=== PATIENT | male | born 1980 | race Caucasian/White ===

== ENCOUNTER 2017-10-23 17:56 | Inpatient (IN) | payer MEDICAID ==
[2017-10-23 18:45] LABS: ADD MAN DIFF? NO
[2017-10-23 18:48] LABS: WHITE BLOOD COUNT 10.7 10^3/ul (4.8-10.8)
[2017-10-23 18:48] LABS: BASOPHILS % 0.4 % (0.0-2.0); EOSINOPHILS % 0.4 % (0.0-7.0); HEMATOCRIT 44.8 % (42.0-52.0); HEMOGLOBIN 16.1 g/dl (14.0-18.0); LYMPHOCYTES # 1.2 10^3/ul (0.8-2.9); LYMPHOCYTES % 11.4 % (15.0-51.0); MEAN CORPUSCULAR HEMOGLOBIN 29.6 pg (29.0-33.0); MEAN CORPUSCULAR HGB CONC 35.9 g/dl (32.0-37.0); MEAN CORPUSCULAR VOLUME 82.4 fl (82.0-101.0); MEAN PLATELET VOLUME 11.3 fl (7.4-10.4); MONOCYTES % 9.2 % (0.0-11.0); NEUTROPHIL # 8.4 10^3/ul (1.6-7.5); NEUTROPHILS % 78.3 % (39.0-77.0); PLATELET COUNT 245 10^3/UL (140-415); RED BLOOD COUNT 5.44 10^6/ul (4.70-6.10); RED CELL DISTRIBUTION WIDTH 12.3 % (11.5-14.5)
[2017-10-23 18:57] LABS: ADD UMIC NO; UR ASCORBIC ACID NEGATIVE (NEGATIVE); UR BILIRUBIN (Dip) NEGATIVE (NEGATIVE); UR BLOOD (Dip) NEGATIVE (NEGATIVE); UR CLARITY CLEAR (CLEAR); UR COLOR YELLOW (YELLOW); UR GLUCOSE (Dip) NEGATIVE (NEGATIVE); UR KETONES (Dip) NEGATIVE (NEGATIVE); UR LEUKOCYTE ESTERASE (Dip) NEGATIVE Leu/ul (NEGATIVE); UR NITRITE (Dip) NEGATIVE (NEGATIVE); UR SPECIFIC GRAVITY (Dip) 1.013 (1.003-1.030); UR TOTAL PROTEIN (Dip) NEGATIVE (NEGATIVE); UR UROBILINOGEN (Dip) NEGATIVE (NEGATIVE)
[2017-10-23 19:05] LABS: ACETAMINOPHEN < 10.0 ug/ml (10.0-30.0); ALANINE AMINOTRANSFERASE 37 IU/L (13-69); ALBUMIN 4.5 g/dl (3.3-4.9); ALBUMIN/GLOBULIN RATIO 1.45; ALKALINE PHOSPHATASE 54 IU/L (42-121); ANION GAP 21 (8-16); ASPARTATE AMINO TRANSFERASE 22 IU/L (15-46); BILIRUBIN,INDIRECT 0.4 mg/dl (0-1.1); BILIRUBIN,TOTAL 0.4 mg/dl (0.2-1.3); BLOOD UREA NITROGEN 35 mg/dl (7-20); CALCIUM 9.1 mg/dl (8.4-10.2); CARBON DIOXIDE 21 mmol/L (21-31); CHLORIDE 103 mmol/L (97-110); CREATININE 2.66 mg/dl (0.61-1.24); GLUCOSE 112 mg/dl (70-220); POTASSIUM 3.5 mmol/L (3.5-5.1); SALICYLATE < 1.0 mg/dl (5.0-30.0); SODIUM 141 mmol/L (135-144); TOTAL PROTEIN 7.6 g/dl (6.1-8.1)
[2017-10-23 19:06] LABS: ETHANOL < 10.0 mg/dl
[2017-10-23 19:09] LABS: OSMOLALITY 290 mOsm/kg (280-295)
[2017-10-23 19:14] LABS: AMPHETAMINE/METHAMPHETAMINE Positive (NEGATIVE); BARBITURATES Negative (NEGATIVE); BENZODIAZEPINES Negative (NEGATIVE); CANNABINOIDS Positive (NEGATIVE); COCAINE Negative (NEGATIVE); OPIATES Negative (NEGATIVE)
[2017-10-23] MEDS: LIDOCAINE/MYLANTA 40 ML BTL PO (19:32)
[2017-10-23] MEDS: SOD CHLORIDE 0.9% IVPB (20:05)
[2017-10-23] MEDS: FOMEPIZOLE IVPB (20:05)
[2017-10-23] MEDS: SOD CHLORIDE 0.9% 1,000 ML IV (21:51)
[2017-10-23] MEDS ORDERED: NACL 0.9% 3 ML SYG IV (22:00)
[2017-10-23] MEDS ORDERED: GLUCOSE GEL 15 GRAM TUBE BUCCAL (22:30)
[2017-10-23] MEDS ORDERED: DEXTROSE 50% 50 ML SYRINGE IV ×2 (22:30)
[2017-10-23] MEDS ORDERED: GLUCOSE GEL 15 GRAM TUBE PO ×2 (22:30)
[2017-10-23] MEDS ORDERED: GLUCAGON 1 MG INJ IM (22:30)
[2017-10-23] MEDS ORDERED: LORAZEPAM 2 MG INJ IV (22:30)
[2017-10-23] MEDS: MULTIVITAMINS 10 ML, THIAMINE 100 MG in SOD CHLORIDE 0.9% 1,000 ML IVPB (23:00)
[2017-10-23 23:34] LABS: Allen Test ACCEPTAB; Arterial Base Excess -0.7 mmol/L (-3.0-3); Arterial Blood Gas Oxygen Sat 96.6 mmHG (95.0-98.0); Arterial COHb 0.2 % (0.0-3.0); Arterial Fraction of Oxyhgb 96.2 % (93.0-99.0); Arterial HCO3 23.6 mmol/L (22.0-26.0); Arterial MetHb 0.2 % (0.0-1.5); Arterial Total Hemglobin 16.1 g/dl (12.0-18.0); Arterial pCO2 38.1 mmhg (35-45); MODE ROOM AIR; Site Right Radial
[2017-10-24] MEDS: SOD CHLORIDE 0.9% IV ×5 (00:06→23:56)
[2017-10-24] MEDS: FOLIC ACID IV ×2 (00:06→06:19)
[2017-10-24] MEDS: LIDOCAINE 5% PATCH TD (00:10)
[2017-10-24 00:20] LABS: ALANINE AMINOTRANSFERASE 40 IU/L (13-69); ALBUMIN/GLOBULIN RATIO 1.42; ALKALINE PHOSPHATASE 56 IU/L (42-121); ANION GAP 18 (8-16); ASPARTATE AMINO TRANSFERASE 23 IU/L (15-46); BILIRUBIN,INDIRECT 0.2 mg/dl (0-1.1); BILIRUBIN,TOTAL 0.2 mg/dl (0.2-1.3); BLOOD UREA NITROGEN 38 mg/dl (7-20); CALCIUM 9.2 mg/dl (8.4-10.2); CARBON DIOXIDE 25 mmol/L (21-31); CHLORIDE 103 mmol/L (97-110); CREATININE 2.61 mg/dl (0.61-1.24); GLUCOSE 114 mg/dl (70-220); POTASSIUM 3.4 mmol/L (3.5-5.1); SODIUM 143 mmol/L (135-144); TOTAL PROTEIN 6.8 g/dl (6.1-8.1)
[2017-10-24] MEDS ORDERED: INSULIN ASPART [NOVOLOG] 3 ML PEN SC (01:00)
[2017-10-24 01:42] LABS: LACTIC ACID 2.1 mmol/L (0.5-2.0)
[2017-10-24] MEDS ORDERED: ACCU-CHEK XX (02:00)
[2017-10-24] MEDS: POTASSIUM CHLORIDE 100 ML IVPB ×2 (02:29→04:00)
[2017-10-24 03:10] LABS: ADD MAN DIFF? NO
[2017-10-24 03:12] LABS: WHITE BLOOD COUNT 8.9 10^3/ul (4.8-10.8)
[2017-10-24 03:12] LABS: BASOPHILS % 0.5 % (0.0-2.0); EOSINOPHILS # 0.1 10^3/ul (0.0-0.5); EOSINOPHILS % 1.1 % (0.0-7.0); HEMATOCRIT 43.1 % (42.0-52.0); HEMOGLOBIN 15.2 g/dl (14.0-18.0); LYMPHOCYTES # 1.8 10^3/ul (0.8-2.9); LYMPHOCYTES % 20.4 % (15.0-51.0); MEAN CORPUSCULAR HEMOGLOBIN 29.4 pg (29.0-33.0); MEAN CORPUSCULAR HGB CONC 35.3 g/dl (32.0-37.0); MEAN CORPUSCULAR VOLUME 83.4 fl (82.0-101.0); MEAN PLATELET VOLUME 11.2 fl (7.4-10.4); MONOCYTE # 0.8 10^3/ul (0.3-0.9); MONOCYTES % 9.3 % (0.0-11.0); NEUTROPHIL # 6.1 10^3/ul (1.6-7.5); NEUTROPHILS % 68.5 % (39.0-77.0); PLATELET COUNT 210 10^3/UL (140-415); RED BLOOD COUNT 5.17 10^6/ul (4.70-6.10); RED CELL DISTRIBUTION WIDTH 12.4 % (11.5-14.5)
[2017-10-24 03:28] LABS: HEMOGLOBIN A1C 5.2 % (0-5.9)
[2017-10-24] MEDS: morphine 2 MG INJ IV ×2 (03:33→15:45)
[2017-10-24 03:34] LABS: LACTIC ACID 1.2 mmol/L (0.5-2.0)
[2017-10-24 03:35] LABS: ALANINE AMINOTRANSFERASE 38 IU/L (13-69); ALBUMIN 3.9 g/dl (3.3-4.9); ALBUMIN/GLOBULIN RATIO 1.34; ALKALINE PHOSPHATASE 57 IU/L (42-121); ANION GAP 17 (8-16); ASPARTATE AMINO TRANSFERASE 23 IU/L (15-46); BILIRUBIN,INDIRECT 0.2 mg/dl (0-1.1); BILIRUBIN,TOTAL 0.2 mg/dl (0.2-1.3); BLOOD UREA NITROGEN 37 mg/dl (7-20); CALCIUM 8.9 mg/dl (8.4-10.2); CARBON DIOXIDE 22 mmol/L (21-31); CHLORIDE 107 mmol/L (97-110); CREATININE 2.53 mg/dl (0.61-1.24); GLUCOSE 109 mg/dl (70-220); POTASSIUM 3.7 mmol/L (3.5-5.1); SODIUM 142 mmol/L (135-144); TOTAL PROTEIN 6.8 g/dl (6.1-8.1)
[2017-10-24 03:35] LABS: MAGNESIUM 2.6 mg/dl (1.7-2.5)
[2017-10-24 06:15] LABS: LACTIC ACID 1.5 mmol/L (0.5-2.0)
[2017-10-24 06:16] LABS: THYROID STIMULATING HORMONE 0.863 MIU/L (0.465-4.680)
[2017-10-24] MEDS: PANTOPRAZOLE 40 MG INJ IV (06:19)
[2017-10-24 06:22] LABS: ALANINE AMINOTRANSFERASE 39 IU/L (13-69); ALBUMIN 3.9 g/dl (3.3-4.9); ALKALINE PHOSPHATASE 53 IU/L (42-121); ANION GAP 16 (8-16); ASPARTATE AMINO TRANSFERASE 20 IU/L (15-46); BILIRUBIN,INDIRECT 0.1 mg/dl (0-1.1); BILIRUBIN,TOTAL 0.1 mg/dl (0.2-1.3); BLOOD UREA NITROGEN 36 mg/dl (7-20); CARBON DIOXIDE 23 mmol/L (21-31); CHLORIDE 106 mmol/L (97-110); CREATININE 2.46 mg/dl (0.61-1.24); GLUCOSE 132 mg/dl (70-220); POTASSIUM 3.6 mmol/L (3.5-5.1); SODIUM 141 mmol/L (135-144); TOTAL PROTEIN 6.5 g/dl (6.1-8.1)
[2017-10-24] MEDS: MULTIVITAMINS 10 ML, THIAMINE 100 MG in SOD CHLORIDE 0.9% 1,000 ML IVPB ×2 (07:29→17:07)
[2017-10-24] MEDS: SOD CHLORIDE 0.9% 1,000 ML IV ×3 (07:38→22:29)
[2017-10-24 10:40] LABS: ALANINE AMINOTRANSFERASE 33 IU/L (13-69); ALBUMIN 3.9 g/dl (3.3-4.9); ALBUMIN/GLOBULIN RATIO 1.44; ALKALINE PHOSPHATASE 49 IU/L (42-121); ANION GAP 18 (8-16); ASPARTATE AMINO TRANSFERASE 20 IU/L (15-46); BILIRUBIN,INDIRECT 0.3 mg/dl (0-1.1); BILIRUBIN,TOTAL 0.3 mg/dl (0.2-1.3); BLOOD UREA NITROGEN 32 mg/dl (7-20); CALCIUM 8.7 mg/dl (8.4-10.2); CARBON DIOXIDE 21 mmol/L (21-31); CHLORIDE 107 mmol/L (97-110); CREATININE 2.44 mg/dl (0.61-1.24); GLUCOSE 132 mg/dl (70-220); POTASSIUM 3.8 mmol/L (3.5-5.1); SODIUM 142 mmol/L (135-144); TOTAL PROTEIN 6.6 g/dl (6.1-8.1)
[2017-10-24 11:06] LABS: AADO2 Arterial 13.6 mmHg (7.0-24.0); Allen Test ACCEPTAB; Arterial Base Excess -2.3 mmol/L (-3.0-3); Arterial Blood Gas Oxygen Sat 96.8 mmHG (95.0-98.0); Arterial COHb 0.4 % (0.0-3.0); Arterial Fraction of Oxyhgb 96.1 % (93.0-99.0); Arterial HCO3 22.5 mmol/L (22.0-26.0); Arterial MetHb 0.3 % (0.0-1.5); Arterial Total Hemglobin 15.6 g/dl (12.0-18.0); MODE ROOM AIR; Site Right Radial
[2017-10-24] MEDS: POTASSIUM CHLORIDE (SR) 20 MEQ TAB PO (12:02)
[2017-10-24] MEDS: LEUCOVORIN CALCIUM IV ×3 (12:02→23:56)
[2017-10-24 14:22] LABS: ALANINE AMINOTRANSFERASE 27 IU/L (13-69); ALBUMIN 3.9 g/dl (3.3-4.9); ALBUMIN/GLOBULIN RATIO 1.39; ALKALINE PHOSPHATASE 55 IU/L (42-121); ANION GAP 18 (8-16); ASPARTATE AMINO TRANSFERASE 21 IU/L (15-46); BILIRUBIN,INDIRECT 0.2 mg/dl (0-1.1); BILIRUBIN,TOTAL 0.2 mg/dl (0.2-1.3); BLOOD UREA NITROGEN 30 mg/dl (7-20); CALCIUM 8.8 mg/dl (8.4-10.2); CARBON DIOXIDE 21 mmol/L (21-31); CHLORIDE 110 mmol/L (97-110); CREATININE 2.27 mg/dl (0.61-1.24); GLUCOSE 143 mg/dl (70-220); POTASSIUM 3.8 mmol/L (3.5-5.1); SODIUM 145 mmol/L (135-144); TOTAL PROTEIN 6.7 g/dl (6.1-8.1)
[2017-10-24 17:55] LABS: OSMOLALITY 294 mOsm/kg (280-295)
[2017-10-24 18:14] LABS: ALANINE AMINOTRANSFERASE 41 IU/L (13-69); ALBUMIN 3.6 g/dl (3.3-4.9); ALBUMIN/GLOBULIN RATIO 1.33; ALKALINE PHOSPHATASE 55 IU/L (42-121); ANION GAP 15 (8-16); ASPARTATE AMINO TRANSFERASE 16 IU/L (15-46); BLOOD UREA NITROGEN 29 mg/dl (7-20); CALCIUM 8.7 mg/dl (8.4-10.2); CARBON DIOXIDE 23 mmol/L (21-31); CHLORIDE 109 mmol/L (97-110); CREATININE 2.25 mg/dl (0.61-1.24); GLUCOSE 100 mg/dl (70-220); SODIUM 143 mmol/L (135-144); TOTAL PROTEIN 6.3 g/dl (6.1-8.1)
[2017-10-25] MEDS: ONDANSETRON 4 MG INJ IV (00:05)
[2017-10-25] MEDS: SOD CHLORIDE 0.9% 1,000 ML IV ×3 (02:08→23:17)
[2017-10-25 05:05] LABS: ALANINE AMINOTRANSFERASE 34 IU/L (13-69); ALBUMIN 3.2 g/dl (3.3-4.9); ALBUMIN/GLOBULIN RATIO 1.39; ALKALINE PHOSPHATASE 46 IU/L (42-121); ANION GAP 14 (8-16); ASPARTATE AMINO TRANSFERASE 13 IU/L (15-46); BILIRUBIN,INDIRECT 0.2 mg/dl (0-1.1); BILIRUBIN,TOTAL 0.2 mg/dl (0.2-1.3); BLOOD UREA NITROGEN 23 mg/dl (7-20); CALCIUM 8.9 mg/dl (8.4-10.2); CARBON DIOXIDE 23 mmol/L (21-31); CHLORIDE 110 mmol/L (97-110); CREATININE 2.15 mg/dl (0.61-1.24); GLUCOSE 101 mg/dl (70-220); POTASSIUM 4.1 mmol/L (3.5-5.1); SODIUM 143 mmol/L (135-144); TOTAL PROTEIN 5.5 g/dl (6.1-8.1)
[2017-10-25] MEDS: PANTOPRAZOLE 40 MG INJ IV (06:44)
[2017-10-25] MEDS: SOD CHLORIDE 0.9% IV (06:47)
[2017-10-25] MEDS: LEUCOVORIN CALCIUM IV (06:47)
[2017-10-25] MEDS: LIDOCAINE 5% PATCH TD (09:23)
[2017-10-25] MEDS: MULTIVITAMINS 10 ML, THIAMINE 100 MG in SOD CHLORIDE 0.9% 1,000 ML IVPB (13:26)
[2017-10-25] MEDS ORDERED: POLYETHYLENE GLYCOL 17 GM PACKET PO (14:30)
[2017-10-25] MEDS ORDERED: DOCUSATE SODIUM 100 MG CAP PO (14:30)
[2017-10-26] MEDS: PANTOPRAZOLE 40 MG INJ IV (05:23)
[2017-10-26 06:31] LABS: ALBUMIN 3.3 g/dl (3.3-4.9); ANION GAP 17 (8-16); BLOOD UREA NITROGEN 20 mg/dl (7-20); CALCIUM 8.7 mg/dl (8.4-10.2); CARBON DIOXIDE 24 mmol/L (21-31); CHLORIDE 109 mmol/L (97-110); GLUCOSE 95 mg/dl (70-220); PHOSPHORUS 3.7 mg/dl (2.5-4.9); POTASSIUM 3.8 mmol/L (3.5-5.1); SODIUM 146 mmol/L (135-144)
[2017-10-26] MEDS: LIDOCAINE 5% PATCH TD (09:00)
[2017-10-26] MEDS: MULTIVITAMINS 10 ML, THIAMINE 100 MG in SOD CHLORIDE 0.9% 1,000 ML IVPB (09:17)
[2017-10-26] MEDS: SOD CHLORIDE 0.9% 1,000 ML IV ×2 (09:38→18:49)
[2017-10-26] MEDS ORDERED: SODIUM CHLORIDE 0.45% 500 ML BAG IV* (13:30)
[2017-10-26] MEDS: SODIUM CHLORIDE 0.45% 500 ML BAG IV* (14:51)
[2017-10-27 01:50] LABS: SODIUM,URINE RANDOM 96 mmol/L (30-90)
[2017-10-27 01:54] LABS: CREATININE,URINE RANDOM 52.18 mg/dl (20-370); PROTEIN/CREAT RATIO 0.26 RATIO
[2017-10-27] MEDS: PANTOPRAZOLE 40 MG INJ IV (05:14)
[2017-10-27 05:38] LABS: OSMOLALITY,URINE 296 mOsm/kg (250-1200)
[2017-10-27] MEDS: SOD CHLORIDE 0.9% 1,000 ML IV (05:38)
[2017-10-27 06:24] LABS: ALBUMIN 3.5 g/dl (3.3-4.9); ANION GAP 14 (8-16); BLOOD UREA NITROGEN 17 mg/dl (7-20); CALCIUM 8.7 mg/dl (8.4-10.2); CARBON DIOXIDE 26 mmol/L (21-31); CHLORIDE 108 mmol/L (97-110); CREATININE 1.96 mg/dl (0.61-1.24); GLUCOSE 99 mg/dl (70-220); MAGNESIUM 1.8 mg/dl (1.7-2.5); PHOSPHORUS 3.8 mg/dl (2.5-4.9); POTASSIUM 3.8 mmol/L (3.5-5.1); SODIUM 144 mmol/L (135-144)
[2017-10-27 06:26] LABS: ANION GAP 17 (8-16); BLOOD UREA NITROGEN 17 mg/dl (7-20); CALCIUM 8.7 mg/dl (8.4-10.2); CARBON DIOXIDE 26 mmol/L (21-31); CHLORIDE 107 mmol/L (97-110); CREATININE 1.96 mg/dl (0.61-1.24); GLUCOSE 98 mg/dl (70-220); POTASSIUM 3.9 mmol/L (3.5-5.1); SODIUM 146 mmol/L (135-144)
[2017-10-27] MEDS: MULTIVITAMINS 10 ML, THIAMINE 100 MG in SOD CHLORIDE 0.9% 1,000 ML IVPB (08:19)
== END 2017-10-27 15:15 | disposition home or self-care (01) | DRG 917 ==
LOC: PP2 10-25 01:46 → E/R 17:56 → MS4 21:44
DX: T65.91XA Toxic effect of unspecified substance, accidental (unintentional), initial encounter (principal); N17.0 Acute kidney failure with tubular necrosis; Z68.41 Body mass index [BMI] 40.0-44.9, adult; E66.9 Obesity, unspecified; F19.10 Other psychoactive substance abuse, uncomplicated; F12.10 Cannabis abuse, uncomplicated; M54.5 Low back pain; R10.9 Unspecified abdominal pain; Z87.891 Personal history of nicotine dependence
CPT/HCPCS: 36415; 36600; 71045; 74018; 76775; 80048; 80053; 80069; 80306; 80307; 81003; 82570; 82803; 83036; 83605; 83735; 83930; 83935; 84300; 84443; 85025; 96374; 99291-25

== ENCOUNTER 2018-04-24 16:12 | Emergency (ER) | payer MEDICAID ==
[2018-04-24] MEDS: IBUPROFEN 800 MG TAB PO (17:38)
== END 2018-04-24 19:39 | disposition home or self-care (01) ==
LOC: FTE 16:12
DX: S60.022A Contusion of left index finger without damage to nail, initial encounter (principal); W22.8XXA Striking against or struck by other objects, initial encounter; Y92.9 Unspecified place or not applicable; Z87.891 Personal history of nicotine dependence
CPT/HCPCS: 73130; 73130-LT; 99283-25